=== PATIENT | male | born 1970 | race Caucasian/White ===

== ENCOUNTER 2023-01-01 11:17 | Outpatient (REF) | payer OTHER, SELFPAY | END 2023-01-01 11:18 | disposition home or self-care (01) | LOC: HO.LAB 11:17 | PROVIDERS: PCP Internal Medicine; Visit Provider Internal Medicine Gastroenterology | DX: Z01.818 Encounter for other preprocedural examination (principal); E66.9 Obesity, unspecified; I10 Essential (primary) hypertension; J45.909 Unspecified asthma, uncomplicated | CPT/HCPCS: 36415; 86003; 99202 ==

== ENCOUNTER 2023-02-01 11:19 | Day surgery (SDC) | payer OTHER, SELFPAY ==
[2023-01-30 10:44] VITALS: BMI 39.2
--- NOTE | 2023-01-31 14:13 | P.CONAN_ITS ---
HPI - Anesthesia Eval Consult details Narrative: 52yo M for Upper Endoscopy and Colonoscopy [facility] Past Medical History Medical History Asthma CHARLY (obstructive sleep apnea) CHARLY on CPAP Family History Family History Maternal Uncle Colon cancer Surgical History Surgical History History of nasal septoplasty Hx of hernia repair Hx of tonsillectomy Social History Social History Alcohol intake: never Patient Tobacco Use Status: Never used Tobacco Meds Allergies Allergy/AdvReac Type Severity Reaction Status Date / Time Seasonal Allergies Allergy Mild Unknown Verified 01/01/23 11:29 Home Medications Medication Instructions Recorded Confirmed Last Taken Type albuterol sulfate 2.5 mg/3 mL mg inhalation 01/01/23 Unknown History (0.083 %) solution for nebulization albuterol sulfate 90 mcg/actuation 2 puff inhalation Q6H 01/01/23 Unknown History aerosol inhaler (Ventolin HFA) cetirizine 10 mg tablet 10 mg PO DAILY 01/01/23 02/01/23 Unknown History docusate sodium 100 mg capsule 100 mg PO BID PRN constipation 01/01/23 02/01/23 Unknown History escitalopram oxalate 10 mg tablet 10 mg PO DAILY 01/01/23 02/01/23 Unknown History fluticasone propionate 50 spray intranasal 01/01/23 Unknown History mcg/actuation nasal spray,suspension gabapentin 300 mg capsule 300 mg PO TID 01/01/23 02/01/23 Unknown History hydroxyzine HCl 25 mg tablet 25 mg PO QID 01/01/23 02/01/23 Unknown History lidocaine HCl 4 % topical cream 1 appl topical BID 01/01/23 02/01/23 Unknown History (Aspercreme (lidocaine HCl)) methocarbamol 500 mg tablet 1,000 mg PO QID PRN moderate pain 01/01/23 02/01/23 Unknown History mometasone-formoterol HFA 200 2 puff inhalation BID 01/01/23 02/01/23 Unknown History mcg-5 mcg/actuation aerosol inhaler (Dulera) oxybutynin chloride 5 mg 5 mg PO BEDTIME 01/01/23 02/01/23 Unknown History tablet,extended release 24 hr tamsulosin 0.4 mg capsule 0.4 mg PO DAILY 01/01/23 02/01/23 Unknown History Exam Exam Date and Time: January 31, 2023 1413 Height,Weight and Vital Signs: Height 5 ft 8 in Weight 117.027 kg Assessment and Plan Assessment Anesthesia Assessment: Chart Reviewed
--- NOTE | 2023-02-01 11:37 | MHC.SHP ---
Pre-Procedural Eval Section A Date of Service: 02/01/23 Section B Chief Complaint: Screening, heartburn Relevant Family History (Specify if Yes): No Relevant Social History: None Present Medications: see Short Stay Collaborative assessment Medical History: Significant History (CHARLY< BPH< obesity, HTN, asthma, depression, chronic back pain and headache) History of Previous Operations: Relevant previous surgery/procedure and date(s) (inguinal hernia repair and paraumbilical hernia, tonsilectomy, septal deviation correction) Allergies: Allergies Allergy/AdvReac Type Severity Reaction Status Date / Time Seasonal Allergies Allergy Mild Unknown Verified 01/01/23 11:29 Review of Systems Sugical H&P ROS: Negative: Constitution, Cardiovascular, Respiratory, Neurological, Psychiatric, Hem-Onc, Allergic/Immunologic, Gastrointestinal, Genitourinary, Musculoskeletal, Integumentary, Endocrine and Eyes/Ears/Nose/Throat Exam Surgical H&P Exam: Normal: HEENT, Normal: Heart, Normal: Lungs, Normal: Extremities, Normal: Abdomen, Normal: Skin and Normal: Neurological Plan Diagnosis/Plan: Unchanged I have reviewed the history and physical and performed a pertinent physical examination on my patient. No changes have occurred unless specified. Time Spent With Patient Time: Total time managing care of this patient today ____ minutes.
[2023-02-01 11:39] VITALS: BMI 40.2
[2023-02-01 11:44] VITALS: BP 140/87; PULSE 75; RESP 16; TEMP 36.4; O2SAT 96
--- NOTE | 2023-02-01 12:19 | HO.ANESPROP2 ---
[facility] Past Medical History Medical History Asthma CHARLY (obstructive sleep apnea) CHARLY on CPAP Family History Family History Maternal Uncle Colon cancer Family history of problems with anesthesia: No Surgical History Surgical History History of nasal septoplasty Hx of hernia repair Hx of tonsillectomy History of Problems with Anesthesia: No Social History Social History Alcohol intake: never Patient Tobacco Use Status: Never used Tobacco Use of substances other than those prescribed or required for medical reasons: No Are you DNR?: No Advance Directives: No Advance Directives Information Provided: Yes Meds Allergies Allergy/AdvReac Type Severity Reaction Status Date / Time Seasonal Allergies Allergy Mild Unknown Verified 01/01/23 11:29 Active Medications: Current Medications Albuterol Sulfate (Albuterol Sulfate (0.083%) 2.5 Mg/3 Ml Vial.Neb) 2.5 mg INHALE ONCE PRN PRN Reason: Shortness of Breath/Wheezing Lactated Ringer's (Lr) 1,000 mls @ 100 mls/hr IVCONT .Q10H ARLEY Home Medications Medication Instructions Recorded Confirmed Last Taken Type albuterol sulfate 2.5 mg/3 mL mg inhalation 01/01/23 Unknown History (0.083 %) solution for nebulization albuterol sulfate 90 mcg/actuation 2 puff inhalation Q6H 01/01/23 Unknown History aerosol inhaler (Ventolin HFA) cetirizine 10 mg tablet 10 mg PO DAILY 01/01/23 02/01/23 Unknown History docusate sodium 100 mg capsule 100 mg PO BID PRN constipation 01/01/23 02/01/23 Unknown History escitalopram oxalate 10 mg tablet 10 mg PO DAILY 01/01/23 02/01/23 Unknown History fluticasone propionate 50 spray intranasal 01/01/23 Unknown History mcg/actuation nasal spray,suspension gabapentin 300 mg capsule 300 mg PO TID 01/01/23 02/01/23 Unknown History hydroxyzine HCl 25 mg tablet 25 mg PO QID 01/01/23 02/01/23 Unknown History lidocaine HCl 4 % topical cream 1 appl topical BID 01/01/23 02/01/23 Unknown History (Aspercreme (lidocaine HCl)) methocarbamol 500 mg tablet 1,000 mg PO QID PRN moderate pain 01/01/23 02/01/23 Unknown History mometasone-formoterol HFA 200 2 puff inhalation BID 01/01/23 02/01/23 Unknown History mcg-5 mcg/actuation aerosol inhaler (Dulera) oxybutynin chloride 5 mg 5 mg PO BEDTIME 01/01/23 02/01/23 Unknown History tablet,extended release 24 hr tamsulosin 0.4 mg capsule 0.4 mg PO DAILY 01/01/23 02/01/23 Unknown History Exam Exam Date and Time: February 01, 2023 1219 Height,Weight and Vital Signs: Height 5 ft 8 in Weight 120 kg Last Vital Signs Temp 97.6 F 02/01/23 11:44 Pulse 75 02/01/23 11:44 Resp 16 02/01/23 11:44 BP 140/87 H 02/01/23 11:44 Pulse Ox 96 02/01/23 11:44 O2 Del Method Room Air 02/01/23 11:44 Airway Mallampati Class: III TM Dist: >3cm Neck ROM: Full Heart: RRR Lungs: CTA Assessment and Plan Final Anesthetic Review Family History of Problems with Anesthesia: No History of Problems with Anesthesia: No NPO: Yes ASA Class: II Final Preanesthetic Review: Meds/Allgs Chart Reviewed, Consent Obtained/Reviewed and Anes Risks/Benef Reviewed Patient Risk: Low Procedure Risk: Low Anesthetic Plan Anesthetic Plan: MAC: Disposition: Standard PACU
--- NOTE | 2023-02-01 12:41 | P.OP_ITS ---
Operative Note Operative Note Date of Service: 02/01/23 Narrative: Operative Information Procedure Description: EGD, Colonoscopy Indication: gerd, screening Anesthesia: MAC FLEXIBLE TRANSORAL UPPER GASTROINTESTINAL ENDOSCOPY AND COLONOSCOPY PROCEDURE NOTE UPPER ENDOSCOPY Consent: Indications for the procedure and potential complications of bleeding, perforation, reaction to medications and missed diagnosis were discussed with the patient and informed consent was obtained. Instrument: Olympus GIF H 190 J mid size upper endoscope Monitoring: Vital signs and clinical assessment, continuous EKG monitoring, Pulse oximetry, Carbon Dioxide monitoring and blood pressure monitoring were done throughout the procedure. Procedure: The patient was placed in the left lateral decubitis position and pre-procedure medications were administered and a bite block was placed. The endoscope was inserted into the mouth and advanced under direct vision to the third part of duodenum. A careful inspection was made as the upper endoscope was withdrawn including a retroflexed examination of the proximal stomach; Findings and interventions are described below. Findings: Larynx:normal Esophagus: GE junction at 42 cm, diaphragm hiatus at 42 cm, slight esophagitis with irregular salmon pink tongues, short segment, bx and WATS 3D brushings taken Stomach: Patchy erythema. Biopsies were obtained. Grade 2 flap valve on retroflexed examination of the cardia. Duodenum: Mild bulbar erythema, bx taken Intervention: Biopsies as noted above COLONOSCOPY Instrument: Olympus variable stiffness pediatric scope 190L Colonoscopy Monitoring: Vital signs and clinical assessment, continuous EKG monitoring, Pulse oximetry, Carbon Dioxide monitoring and blood pressure monitoring were done throughout the procedure. Colon withdrawal time was 9 minutes. Procedure: The patient was placed in the left lateral decubitis position and pre-procedure medications were administered. After a digital rectal examination of the ano-rectum, the video colonoscope was inserted into the rectum and advanced through the colon to the cecum/TI. The colonoscope was slowly withdrawn in a retrograde panoramic fashion and the colon mucosa was carefully examined including a retroflexed view of the rectum. Findings and interventions are described below. Procedure Difficulty: easy Findings: Terminal Ileum-normal Cecum:normal Ascending Colon: 6-9 mm sessile removed with cold snare Transverse Colon -normal Descending Colon:normal Sigmoid Colon: normal Rectum: Retroflexion with small internal hemorrhoids, grade I Anorectum - normal Colon preparation: [place] Bowel Preparation Scale Right colon; 3 Transverse colon: 3 Left colon; 3 (0 = Unprepared colon segment with mucosa not seen due to solid stool that cannot be cleared. 1 = Portion of mucosa of the colon segment seen, but other areas of the colon segment not well seen due to staining, residual stool and/or opaque liquid. 2 = Minor amount of residual staining, small fragments of stool and/or opaque liquid, but mucosa of colon segment seen well. 3 = Entire mucosa of colon segment seen well with no residual staining, small fragments of stool or opaque liquid) Impression and Post Procedure Diagnosis: Endoscopy Findings: possible barretts esophagitis gastritis duodenitis Colonoscopy Findings: polyp internal hemorrhoids Plan: Await Pathology results Repeat Colonoscopy in 5-7 years due to polyp (adenomatous by kudo markings) or earlier if clinically indicated High fiber diet leaflet avoid straining at stool, epsom salts and sitz bath, anusol supps or cream if h pylori pos treat, if ongoing inflammation then can change PPI if he has been compliant with omeprazole if Barretts pos then repeat EGD in 3 yrs or so Above findings were reviewed with the patient and relevant handouts were provided if indicated.
[2023-02-01 13:03] VITALS: BP 104/60; PULSE 72; RESP 16; TEMP 36.1; O2SAT 96
[2023-02-01 13:17] VITALS: BP 130/80; PULSE 65; RESP 16; O2SAT 96
--- NOTE | 2023-02-01 13:23 | HO.POSTANES ---
Post Anesthesia Evaluation Post Anesthesia Evaluation Vital Signs: Vital Signs Temp Pulse Resp BP Pulse Ox O2 Del Method 02/01/23 13:03 97.0 F 72 16 104/60 96 Room Air 02/01/23 11:44 97.6 F 75 16 140/87 H 96 Room Air Anesthesia: Monitored Mental Status: Awake Pain Control: Satisfactory Nausea/Vomiting: None Hydration: Adequate Anesthesia-Related Issues: No Anes. Related Issues
[2023-02-01 13:42] VITALS: BP 126/88; PULSE 68; RESP 16; TEMP 36.8; O2SAT 97
== END 2023-02-01 14:25 | disposition home or self-care (01) ==
PROVIDERS: PCP Internal Medicine; Visit Provider Internal Medicine Gastroenterology
PROC: (CPT 45385; principal; 2023-02-01 13:20)
DX: Z12.11 Encounter for screening for malignant neoplasm of colon (principal); D12.2 Benign neoplasm of ascending colon; K64.0 First degree hemorrhoids; R12 Heartburn; K29.50 Unspecified chronic gastritis without bleeding; K29.80 Duodenitis without bleeding; K20.80 Other esophagitis without bleeding; K44.9 Diaphragmatic hernia without obstruction or gangrene; I10 Essential (primary) hypertension; G47.33 Obstructive sleep apnea (adult) (pediatric); E66.9 Obesity, unspecified; Z68.39 Body mass index [BMI] 39.0-39.9, adult; J45.909 Unspecified asthma, uncomplicated; N40.0 Benign prostatic hyperplasia without lower urinary tract symptoms; Z79.51 Long term (current) use of inhaled steroids; Z79.899 Other long term (current) drug therapy; Z99.89 Dependence on other enabling machines and devices
CPT/HCPCS: 45385; 43239; 88305; 88342

== ENCOUNTER 2023-02-26 08:41 | Outpatient (REF) | payer OTHER, SELFPAY ==
[2023-02-26 11:28] LABS: Folate 13.4 ng/mL (> or = 4.0); Vitamin B12 180 pg/mL (200-900); Vitamin D 25-OH Total 16.5 ng/mL (>30)
[2023-03-01 17:53] LABS: Vitamin K1 314 pg/mL (130-1500)
[2023-03-03 12:58] LABS: Vitamin B6 21.6 ng/mL (2.1-21.7)
[2023-03-04 04:29] LABS: Vitamin B1 9 nmol/L (8-30)
[2023-03-05 16:09] LABS: Alpha-Tocopherol 12.5 mg/L (5.7-19.9)
[2023-03-09 12:08] LABS: Nicotinamide <20 ng/mL; Vit B3 - Nicotinic Acid <20 ng/mL
[2023-03-09 18:44] LABS: Vitamin B5 (Pantothenic Acid) <40 ng/mL (<275)
== END 2023-02-26 08:42 | disposition home or self-care (01) ==
LOC: HO.LAB 08:41
PROVIDERS: PCP Internal Medicine; Visit Provider Internal Medicine Gastroenterology
DX: E46 Unspecified protein-calorie malnutrition (principal); F45.8 Other somatoform disorders
CPT/HCPCS: 36415; 82306; 82607; 82746; 84207; 84425; 84446; 84591; 84597; 99212

== ENCOUNTER 2023-08-27 09:02 | Outpatient (AMB) | payer OTHER, SELFPAY ==
[2023-08-27 09:04] VITALS: BP 131/68; PULSE 59; BMI 33.8
--- NOTE | 2023-08-27 09:04 | A.OFFVIS_ITS ---
Intake Vital Signs 08/27/23 09:04 Height 5 ft 9 in Weight 228 lb 13.437 oz BMI 33.8 BP 131/68 Blood Pressure Location Rt brachial Position Sitting Pulse 59 Intake Visit Reasons: 6 mnth follow up Intake Note: Dre presents in the office as a 6 months follow up. CC: Patient reports doing well denies having any GI concerns or symptoms today. [employer] Required: No Allergies Seasonal Allergies Allergy (Mild, Verified 08/27/23 09:05) Unknown No Known Drug Allergies Allergy (Unknown, Verified 08/27/23 09:05) none HPI 6 mnth follow up HPI Details 53 yr old m with hx of CHARLY< BPH< obesity , HTN, asthma, depression and headache here for f/u RECAP: He had chronic issues with bloating, gas, heartburn he had h pylori before, and apparently this was eradicated and confirmed with stool test he does have straining with stool and some anal discomfort he does hae some heat sensation feeling in the LUQ he did have something coming from the rectum, and he was not usre if it was a worm, he had tests which were neg he had anal fissure in past due to hard stools he has been trying metamucil daily, EGD/colonoscopy: 01/2023 Endoscopy Findings: possible barretts esophagitis gastritis duodenitis Colonoscopy Findings: polyp internal hemorrhoids Path: chronic duodenitis, chronic inactive gastritis esophagitis GEJ and distal esophagus--proximal esophagus was normal tubular adenoma WATS3D-- no goblet cells seen, columnar epithelium noted INTERIM: He feels well, no heartburn he is trying to lose weight he is being cautious with his diet he is being compliant with PPI he went to [place] and it has helped his burping to some extent EXAM: GENERAL: The patient is well developed and nontoxic. VITAL SIGNS:see workflow HEENT: Nonicteric sclerae, PERRLA, EOMI. Oropharynx clear. Moist mucous membranes. Conjunctivae appear well perfused. No thyroid mass. CHEST: Chest wall is nontender. HEART: Regular rate and rhythm without murmurs. LUNGS: Clear to auscultation bilaterally. ABDOMEN: Soft, positive bowel sounds, nontender, no organomegaly.no flank tenderness SKIN: No rash, no excessive bruising, petechiae, or purpura. NEUROLOGIC: Cranial nerves II-XII intact without motor/sensory deficit. A/P; 1/ Possible barretts 2/ tubular adenoma 3/ Aerophagia PLAN: 1/ repeat EGD next year with WATS 2/ repeat colo in 5 yrs 3/ cont PPi --trial of simethicone PFSH Medical History Asthma CHARLY (obstructive sleep apnea) CHARLY on CPAP Surgical History History of esophagogastroduodenoscopy (EGD) History of nasal septoplasty Hx of colonoscopy Hx of hernia repair Hx of tonsillectomy Family History Maternal Uncle Colon cancer Social History Alcohol intake: never Patient Tobacco Use Status: Never used Tobacco Physical Exam Vital Signs: BMI result Body Mass Index 33.8 Assessment & Plan Assessment & Plan (1) Aerophagia: Code(s): F45.8 - Other somatoform disorders (2) GERD (gastroesophageal reflux disease): Code(s): K21.9 - Gastro-esophageal reflux disease without esophagitis Medications: New simethicone (Gas Relief (simethicone)) 125 mg PO BID-QID PRN 90 tabs 2RF abdominal distention Coding Level of Care Code Est Pt Level 3 (83629) Diagnoses Aerophagia F45.8 GERD (gastroesophageal reflux disease) K21.9
== END 2023-08-27 09:32 | disposition home or self-care (01) ==
PROVIDERS: PCP Internal Medicine; Visit Provider Internal Medicine Gastroenterology
DX: F45.8 Other somatoform disorders (principal); K21.9 Gastro-esophageal reflux disease without esophagitis
CPT/HCPCS: 99213

== ENCOUNTER → 2023-08-27 09:02 | Outpatient (BNVA) | payer OTHER, SELFPAY | PROVIDERS: PCP Internal Medicine; Visit Provider Internal Medicine Gastroenterology | DX: F45.8 Other somatoform disorders (principal); K21.9 Gastro-esophageal reflux disease without esophagitis | CPT/HCPCS: 99212 ==

== ENCOUNTER 2024-02-19 08:49 | Day surgery (SDC) | payer OTHER, SELFPAY ==
[2024-02-08 09:38] VITALS: BMI 33.7
--- NOTE | 2024-02-18 12:23 | HO.ANESPROP2 ---
Documented by User: Cassie Camargo NP 02/18/24 12:24 HPI - Anesthesia Eval Consult details Narrative: 53yo M for Upper Endoscopy PMFSH Active Problems Active Problems: All Active Problems GERD (gastroesophageal reflux disease) (Acute) Aerophagia (Acute) Malnutrition (Acute) Past Medical History Medical History (Updated 02/08/24 @ 09:31 by Josette Tomlinson, RN) Lumbar disc disorder BPH (benign prostatic hyperplasia) Palpitations GERD (gastroesophageal reflux disease) CHARLY on CPAP Asthma Family History Family History Maternal Uncle Colon cancer Family history of problems with anesthesia: No Surgical History Surgical History (Updated 02/08/24 @ 09:00 by Josette Tomlinson RN) Hx of colonoscopy History of esophagogastroduodenoscopy (EGD) History of nasal septoplasty Hx of hernia repair Hx of tonsillectomy History of Problems with Anesthesia: No Social History Social History Are you a primary healthcare social worker to a significant other at home: No Do you presently have visiting nurse or other home services: No Alcohol intake: never Patient Tobacco Use Status: Former Tobacco user Quit Date: age 19 Tobacco use type: Cigarette Years Smoked: 2 Use of substances other than those prescribed or required for medical reasons: No Have you been hit, kicked, punched, or otherwise hurt by someone within the past year? If so, by whom?: No Are you DNR?: No Advance Directives: No Advance Directives Information Provided: Yes Advance Directives on File: No Recently lost weight without trying: No Eating poorly because of decreased appetite: No Nutrition Risks: No Nutritional Risk Poor oral hygiene: No Meds Allergies Allergy/AdvReac Type Severity Reaction Status Date / Time Seasonal Allergies Allergy Mild Unknown Verified 08/27/23 09:05 Home Medications ?Medication ?Instructions ?Recorded ?Confirmed ?Last Taken ?Type albuterol sulfate 2.5 mg/3 mL 2.5 mg inhalation Q4H PRN 01/01/23 02/08/24 Unknown History (0.083 %) solution for nebulization Shortness Of Breath albuterol sulfate 90 mcg/actuation 2 puff inhalation Q6H PRN 01/01/23 02/08/2424 History aerosol inhaler (Ventolin HFA) Shortness Of Breath cetirizine 10 mg tablet 10 mg PO DAILY PRN Allergy Symptoms 01/01/23 02/08/24 Unknown History fluticasone propionate 50 1 spray intranasal DAILY 01/01/23 02/08/24 Unknown History mcg/actuation nasal spray,suspension gabapentin 300 mg capsule 300 mg PO TID PRN Back Pain 01/01/23 02/08/24 Unknown History mometasone-formoterol HFA 200 2 puff inhalation BID 01/01/23 02/08/24 Unknown History mcg-5 mcg/actuation aerosol inhaler (Dulera) oxybutynin chloride 5 mg 5 mg PO BEDTIME 01/01/23 02/08/24 Unknown History tablet,extended release 24 hr CPAP (CPAP Machine/Device) 02/26/23 Unknown History alfuzosin 10 mg tablet,extended 10 mg PO DAILY 08/27/23 02/08/24 Unknown History release 24 hr Exam Height,Weight and Vital Signs: Height 5 ft 9 in Weight 103.419 kg Assessment and Plan Assessment Anesthesia Assessment: Chart Reviewed Final Anesthetic Review Family History of Problems with Anesthesia: No History of Problems with Anesthesia: No Documented by User: Ricky Eason MD 02/19/24 09:42 [facility] Past Medical History Medical History (Updated 02/08/24 @ 09:31 by Josette Tomlinson RN) Lumbar disc disorder BPH (benign prostatic hyperplasia) Palpitations GERD (gastroesophageal reflux disease) CHARLY on CPAP Asthma Family History Family History Maternal Uncle Colon cancer Surgical History Surgical History (Updated 02/08/24 @ 09:00 by Josette Tomlinson RN) Hx of colonoscopy History of esophagogastroduodenoscopy (EGD) History of nasal septoplasty Hx of hernia repair Hx of tonsillectomy Social History Social History Are you a primary healthcare social worker to a significant other at home: No Do you presently have visiting nurse or other home services: No Alcohol intake: never Patient Tobacco Use Status: Former Tobacco user Quit Date: age 19 Tobacco use type: Cigarette Years Smoked: 2 Use of substances other than those prescribed or required for medical reasons: No Have you been hit, kicked, punched, or otherwise hurt by someone within the past year? If so, by whom?: No Are you DNR?: No Advance Directives: No Advance Directives Information Provided: Yes Advance Directives on File: No Recently lost weight without trying: No Eating poorly because of decreased appetite: No Nutrition Risks: No Nutritional Risk Poor oral hygiene: No Meds Allergies Allergy/AdvReac Type Severity Reaction Status Date / Time Seasonal Allergies Allergy Mild Unknown Verified 08/27/23 09:05 Home Medications ?Medication ?Instructions ?Recorded ?Confirmed ?Last Taken ?Type albuterol sulfate 2.5 mg/3 mL 2.5 mg inhalation Q4H PRN 01/01/23 02/08/24 Unknown History (0.083 %) solution for nebulization Shortness Of Breath albuterol sulfate 90 mcg/actuation 2 puff inhalation Q6H PRN 01/01/23 02/08/24 02/19/24 History aerosol inhaler (Ventolin HFA) Shortness Of Breath cetirizine 10 mg tablet 10 mg PO DAILY PRN Allergy Symptoms 01/01/23 02/08/24 Unknown History fluticasone propionate 50 1 spray intranasal DAILY 01/01/23 02/08/24 Unknown History mcg/actuation nasal spray,suspension gabapentin 300 mg capsule 300 mg PO TID PRN Back Pain 01/01/23 02/08/24 Unknown History mometasone-formoterol HFA 200 2 puff inhalation BID 01/01/23 02/08/24 Unknown History mcg-5 mcg/actuation aerosol inhaler (Dulera) oxybutynin chloride 5 mg 5 mg PO BEDTIME 01/01/23 02/08/24 Unknown History tablet,extended release 24 hr CPAP (CPAP Machine/Device) 02/26/23 Unknown History alfuzosin 10 mg tablet,extended 10 mg PO DAILY 08/27/23 02/08/24 Unknown History release 24 hr Exam Airway Mallampati Class: III TM Dist: <=3cm Neck ROM: Full Loose/Missing/Broken Teeth: No Heart: rrr Lungs: cta Assessment and Plan Assessment Anesthesia Assessment: Anesthesia Plan Discussed Final Anesthetic Review NPO: Yes ASA Class: II and III Final Preanesthetic Review: No Changes in Pt Med Stat, Meds/Allgs Chart Reviewed, Consent Obtained/Reviewed and Anes Risks/Benef Reviewed Patient Risk: Intermediate Procedure Risk: Intermediate Anesthetic Plan Anesthetic Plan: MAC: Disposition: Standard PACU
--- NOTE | 2024-02-19 08:45 | MHC.SHP ---
Pre-Procedural Eval Section A - 24 Hr Update-Section A only Date of Service: 02/19/24 Section B - Complete if H&P > 30 days Chief Complaint: Gastro-esophageal reflux disease without esophagit Relevant Family History (Specify if Yes): No Relevant Social History: None Present Medications: see Short Stay Collaborative assessment Medical History: Significant History (Lumbar disc disorder BPH (benign prostatic hyperplasia) Palpitations GERD (gastroesophageal reflux disease) CHARLY on CPAP Asthma) History of Previous Operations: Relevant previous surgery/procedure and date(s) (Hx of colonoscopy History of esophagogastroduodenoscopy (EGD) History of nasal septoplasty Hx of hernia repair Hx of tonsillectomy) Allergies: Allergies Allergy/AdvReac Type Severity Reaction Status Date / Time Seasonal Allergies Allergy Mild Unknown Verified 08/27/23 09:05 Review of Systems Sugical H&P ROS: Negative: Constitution, Cardiovascular, Respiratory, Neurological, Psychiatric, Hem-Onc, Allergic/Immunologic, Gastrointestinal, Genitourinary, Musculoskeletal, Integumentary, Endocrine and Eyes/Ears/Nose/Throat Exam Surgical H&P Exam: Normal: HEENT, Normal: Heart, Normal: Lungs, Normal: Extremities, Normal: Abdomen, Normal: Skin and Normal: Neurological Plan Diagnosis/Plan: Unchanged I have reviewed the history and physical and performed a pertinent physical examination on my patient. No changes have occurred unless specified. Time Spent With Patient Time: Total time managing care of this patient today ____ minutes.
[2024-02-19 09:34] VITALS: BP 133/78; PULSE 73; RESP 18; TEMP 36.2; O2SAT 96
[2024-02-19 09:59] VITALS: BP 133/78; PULSE 73; RESP 18; TEMP 36.2; O2SAT 96
[2024-02-19] MEDS: Lactated Ringers 1,000 ML 100 ML IVCONT (10:00)
--- NOTE | 2024-02-19 10:09 | W.PM.OPN ---
Operative Note Operative Note Date of Service: 02/19/24 Narrative: Procedure Description: EGD Indication: barretts Anesthesia: MAC FLEXIBLE TRANSORAL UPPER GASTROINTESTINAL ENDOSCOPY UPPER ENDOSCOPY Consent: Indications for the procedure and potential complications of bleeding, perforation, reaction to medications and missed diagnosis were discussed with the patient and informed consent was obtained. Instrument: Olympus GIF H 190 J mid size upper endoscope Monitoring: Vital signs and clinical assessment, continuous EKG monitoring, Pulse oximetry, Carbon Dioxide monitoring and blood pressure monitoring were done throughout the procedure. Procedure: The patient was placed in the left lateral decubitis position and pre-procedure medications were administered and a bite block was placed. The endoscope was inserted into the mouth and advanced under direct vision to the third part of duodenum. A careful inspection was made as the upper endoscope was withdrawn including a retroflexed examination of the proximal stomach; Findings and interventions are described below. Findings: Larynx:normal Esophagus: GE junction at 40 cm, diaphragm hiatus at 42 cm, consistent with small 2 cm sliding hiatal hernia with non obstructive schatzki ring noted, irregular z line, brushings and bx taken from GEJ and distal esophagus Stomach: normal mucosa Grade 2 flap valve on retroflexed examination of the cardia. Duodenum: Normal bulb and descending duodenum, Intervention: Biopsies as noted above, WATS 3D brushings Impression/Findings: schatzki ring hiatal hernia PLAN: await bx GERD precautions cont with PPI
[2024-02-19 10:38] VITALS: BP 124/75; PULSE 69; RESP 16; TEMP 36.2; O2SAT 94
[2024-02-19 10:49] VITALS: BP 136/86; PULSE 77; RESP 16; TEMP 36.1; O2SAT 96
== END 2024-02-19 11:19 | disposition home or self-care (01) ==
PROVIDERS: PCP Internal Medicine; Visit Provider Internal Medicine Gastroenterology
PROC: 0DJ08ZZ Inspection of Upper Intestinal Tract, Via Natural or Artificial Opening Endoscopic (ICD-10-PCS; CPT 43235; principal; 2024-02-19 09:50)
DX: K21.00 Gastro-esophageal reflux disease with esophagitis, without bleeding (principal); K22.2 Esophageal obstruction; K44.9 Diaphragmatic hernia without obstruction or gangrene; F45.8 Other somatoform disorders; J45.909 Unspecified asthma, uncomplicated; G47.33 Obstructive sleep apnea (adult) (pediatric); Z99.89 Dependence on other enabling machines and devices
CPT/HCPCS: 43239; 88305; 88313; J2704

== ENCOUNTER → 2024-02-19 08:49 | Outpatient (BNV) | payer OTHER, SELFPAY | PROVIDERS: PCP Internal Medicine; Visit Provider Internal Medicine Gastroenterology | DX: K22.70 Barrett's esophagus without dysplasia (principal); K22.2 Esophageal obstruction | CPT/HCPCS: 43239 ==

== ENCOUNTER 2024-02-22 09:54 | Outpatient (AMB) | payer OTHER, SELFPAY ==
--- NOTE | 2024-02-22 09:58 | MHC.OFFVIS ---
Vital Signs 02/22/24 10:00 Height 5 ft 8 in Weight 235 lb 14.314 oz BMI 35.9 BP 120/69 Blood Pressure Location Lt brachial Position Sitting Pulse 70 Intake Visit Reasons: 6 month follow up Intake Note: Sue presents in the office as a 6 month follow up with no concerns today. Allergies Seasonal Allergies Allergy (Mild, Verified 02/22/24 10:00) Unknown HPI HPI 6 month follow up: Details: 53 yr old m with hx of CHARLY< BPH< obesity, HTN, asthma, depression and headache here for f/u RECAP: He had chronic issues with bloating, gas, heartburn he had h pylori before, and apparently this was eradicated and confirmed with stool test he does have straining with stool and some anal discomfort he does hae some heat sensation feeling in the LUQ he did have something coming from the rectum, and he was not usre if it was a worm, he had tests which were neg he had anal fissure in past due to hard stools he has been trying metamucil daily, EGD/colonoscopy: 01/2023 Endoscopy Findings: possible barretts esophagitis gastritis duodenitis Colonoscopy Findings: polyp internal hemorrhoids Path: chronic duodenitis, chronic inactive gastritis esophagitis GEJ and distal esophagus--proximal esophagus was normal tubular adenoma WATS3D-- no goblet cells seen, columnar epithelium noted rept EGD: 02/19/24 active esophagitis on bx INTERIM: He feels well since EGD he has been taking omeprazole he denies heartburn no chest pain EXAM: GENERAL: The patient is well developed and nontoxic. VITAL SIGNS:see workflow HEENT: Nonicteric sclerae, PERRLA, EOMI. Oropharynx clear. Moist mucous membranes. Conjunctivae appear well perfused. No thyroid mass. CHEST: Chest wall is nontender. HEART: Regular rate and rhythm without murmurs. LUNGS: Clear to auscultation bilaterally. ABDOMEN: Soft, positive bowel sounds, nontender, no organomegaly.no flank tenderness SKIN: No rash, no excessive bruising, petechiae, or purpura. NEUROLOGIC: Cranial nerves II-XII intact without motor/sensory deficit. A/P; 1/ Active esophagitis despite omeprazole 2/ tubular adenoma 3/ Aerophagia-- PLAN: 1/ consider repeat EGD next year with WATS 2/ repeat colo in 5 yrs 3/ change omeprazole to esomperazole 4/ we had discussion about weight loss and maybe ozempic but would need to prob pay out of pocket PFSH Medical History Lumbar disc disorder BPH (benign prostatic hyperplasia) Palpitations GERD (gastroesophageal reflux disease) CHARLY on CPAP Asthma Surgical History Hx of colonoscopy History of esophagogastroduodenoscopy (EGD) History of nasal septoplasty Hx of hernia repair Hx of tonsillectomy Family History Maternal Uncle Colon cancer Social History Are you a primary resident care coordinator to a significant other at home: No Do you presently have visiting nurse or other home services: No Alcohol intake: never Patient Tobacco Use Status: Former Tobacco user Quit Date: age 19 Tobacco use type: Cigarette Years Smoked: 2 Physical Exam Vital Signs: Last Vital Signs Pulse 70 02/22/24 10:00 BP 120/69 02/22/24 10:00 BMI result Body Mass Index 35.9 Assessment & Plan Assessment & Plan (1) GERD (gastroesophageal reflux disease): Code(s): K21.9 - Gastro-esophageal reflux disease without esophagitis Category: Medical Plan: see above Medications: New esomeprazole magnesium 40 mg PO DAILY 90 caps 1RF Discontinued omeprazole Discontinued Reason: Doctor's Order 40 mg PO DAILY 90 caps 2RF Coding Level of Care Code Est Pt Level 3 (54731) Diagnoses GERD (gastroesophageal reflux disease) K21.9
[2024-02-22 10:00] VITALS: BP 120/69; PULSE 70; BMI 35.9
== END 2024-02-22 10:23 | disposition home or self-care (01) ==
PROVIDERS: PCP Internal Medicine; Visit Provider Internal Medicine Gastroenterology
DX: K21.9 Gastro-esophageal reflux disease without esophagitis (principal)
CPT/HCPCS: 99213

== ENCOUNTER → 2024-02-22 09:54 | Outpatient (BNVA) | payer OTHER, SELFPAY | PROVIDERS: PCP Internal Medicine; Visit Provider Internal Medicine Gastroenterology | DX: K21.9 Gastro-esophageal reflux disease without esophagitis (principal) | CPT/HCPCS: 99212 ==

== ENCOUNTER 2025-04-13 11:32 | Outpatient (AMB) | payer OTHER, SELFPAY ==
--- NOTE | 2025-04-13 11:40 | A.OFFVIS_ITS ---
Vital Signs 04/13/25 11:46 Height 5 ft 10 in Weight 255 lb 11.779 oz BMI 36.7 BP 125/66 Blood Pressure Location Lt brachial Position Sitting Pulse 71 Intake Visit Reasons: 1yr fu gerd rs from 02/20 Intake Note: Dre presents in the office as a 1 year follow up for GERD. CC: States that this is just a routine follow up and everything is good! [employer] Tender Required: No Allergies Seasonal Allergies Allergy (Mild, Verified 04/13/25 11:49) Unknown HPI HPI 1yr fu gerd rs from 02/20: Details: 54 yr old m with hx of CHARLY< BPH< obesity, HTN, asthma, depression and headache here for f/u RECAP: He had chronic issues with bloating, gas, heartburn he had h pylori before, and apparently this was eradicated and confirmed with stool test he does have straining with stool and some anal discomfort he does hae some heat sensation feeling in the LUQ he did have something coming from the rectum, and he was not usre if it was a worm, he had tests which were neg he had anal fissure in past due to hard stools he has been trying metamucil daily, EGD/colonoscopy: 01/2023 Endoscopy Findings: possible barretts esophagitis gastritis duodenitis Colonoscopy Findings: polyp internal hemorrhoids Path: chronic duodenitis, chronic inactive gastritis esophagitis GEJ and distal esophagus--proximal esophagus was normal tubular adenoma WATS3D-- no goblet cells seen, columnar epithelium noted rept EGD: 02/19/24 active esophagitis on bx INTERIM: He has no issues no problems with GERD he is taking esomperazole daily he is taking vit D and B12 EXAM: GENERAL: The patient is well developed and nontoxic. VITAL SIGNS:see workflow HEENT: Nonicteric sclerae, PERRLA, EOMI. Oropharynx clear. Moist mucous membranes. Conjunctivae appear well perfused. No thyroid mass. CHEST: Chest wall is nontender. HEART: Regular rate and rhythm without murmurs. LUNGS: Clear to auscultation bilaterally. ABDOMEN: Soft, positive bowel sounds, nontender, no organomegaly.no flank tenderness SKIN: No rash, no excessive bruising, petechiae, or purpura. NEUROLOGIC: Cranial nerves II-XII intact without motor/sensory deficit. A/P; 1/ Active esophagitis despite omeprazole 2/ tubular adenoma 3/ Aerophagia-- PLAN: 1/ consider repeat EGD next year with WATS 2/ repeat colo in 4 yrs 3/ try lower dose esomeprazole 20 mg PFSH Medical History Lumbar disc disorder BPH (benign prostatic hyperplasia) Palpitations GERD (gastroesophageal reflux disease) CHARLY on CPAP Asthma Surgical History Hx of colonoscopy History of esophagogastroduodenoscopy (EGD) History of nasal septoplasty Hx of hernia repair Hx of tonsillectomy Family History Maternal Uncle Colon cancer Social History Are you a primary health care marketing specialist to a significant other at home: No Do you presently have visiting nurse or other home services: No Alcohol intake: never Patient Tobacco Use Status: Former Tobacco user Tobacco use type: Cigarette Years Smoked: 2 Physical Exam Vital Signs: Last Vital Signs Pulse 71 04/13/25 11:46 BP 125/66 04/13/25 11:46 BMI result Body Mass Index 36.7 Assessment & Plan Assessment & Plan (1) GERD (gastroesophageal reflux disease): Code(s): K21.9 - Gastro-esophageal reflux disease without esophagitis Category: Medical Plan: as above Medications: New esomeprazole magnesium 20 mg PO DAILY 30 caps 6RF cholecalciferol (vitamin D3) 25 mcg PO DAILY 90 tabs 2RF Refilled cyanocobalamin (vitamin B-12) 1,000 mcg PO DAILY 90 tabs 3RF Discontinued esomeprazole magnesium Discontinued Reason: Doctor's Order 40 mg PO DAILY 90 caps 3RF Coding Level of Care Code Est Pt Level 3 (61447) Diagnoses GERD (gastroesophageal reflux disease) K21.9
[2025-04-13 11:46] VITALS: BP 125/66; PULSE 71; BMI 36.7
== END 2025-04-13 12:32 | disposition home or self-care (01) ==
LOC: HO.HGI 11:33
PROVIDERS: PCP Internal Medicine; Visit Provider Internal Medicine Gastroenterology
DX: K21.9 Gastro-esophageal reflux disease without esophagitis (principal)
CPT/HCPCS: 99213

== ENCOUNTER → 2025-04-13 11:32 | Outpatient (BNVA) | payer OTHER, SELFPAY | PROVIDERS: PCP Internal Medicine; Visit Provider Internal Medicine Gastroenterology | DX: K21.9 Gastro-esophageal reflux disease without esophagitis (principal) | CPT/HCPCS: 99212 ==